=== PATIENT | female | born 1955 | race Caucasian/White ===

== ENCOUNTER → 2022-03-21 | Outpatient (CLI) | payer MEDICARE, OTHER | LOC: CARD 08:25 | PROVIDERS: ATTEND Physician Assistant | DX: I10 Essential (primary) hypertension (principal) | CPT/HCPCS: 93306 ==

== ENCOUNTER → 2022-03-28 | Outpatient (CLI) | payer MEDICARE, OTHER ==
[~2022-03-28] MED LIST: CATHETER FLUSH 10 ML SYR IVP PRN
[2022-03-28 13:08] VITALS: BP 171/80
--- NOTE | 2022-03-28 14:48 | Cardiology Stress Test Report ---
Stress Test Report Date of Procedure/Referring: Date of Procedure: Mar 28, 2022 PCP Karolyn Hughes Admitting Physician Admitting Physician: Attending Physician: Sondra Alonso Baseline Heart Rate: 63 Baseline Blood Pressure: Blood Pressure Systolic: 171 Blood Pressure Diastolic: 80 Vital Signs Date Time Temp Pulse Resp B/P (MAP) Pulse Ox O2 Delivery O2 Flow Rate FiO2 03/28/22 13:08 69 171/80 (110) 99 Room Air Baseline Vital Signs Vital Signs Date Time Temp Pulse Resp B/P (MAP) Pulse Ox O2 Delivery O2 Flow Rate FiO2 03/28/22 13:08 69 171/80 (110) 99 Room Air Baseline EKG: Baseline EKG: NSR Summary: After explaining the procedure and details to the patient, she signed the conse nt and was brought to the stress nuclear laboratory. Patient exercised on standard [place] protocol, EKG, heart rate and blood pressure were monitored continuously, resting and stress doses of radio tracer were injected, imaging was acquired and reviewed in the short axis, horizontal long axis and vertical long axis views Patient was able to exercise for a total of 7.30 minutes on [place] protocol, METs 9.1 Maximum heart rate 144 Maximum blood pressure 200/66 Stress EKG, Minimal nondiagnostic changes Recovery EKG, Return to baseline TID: 1.17 SSS: 3 SDS: 3 EF: 70 Conclusion: 1. Good exercise tolerance for a total of 7 minutes and 30 seconds on standard [place] protocol, 9.1 METS achieving 94% of maximal expected heart rate 2. Appropriate heart rate rate response to exercise with hypertensive response to exercise with peak blood pressure 200/66 return to baseline during recovery 3. Nondiagnostic EKG changes with exercise return to baseline during recovery 4. Breast attenuation with typical female pattern, no significant ischemia or infarction on SPECT images 5. Normal left ventricular size, ejection fraction 70% WILLIAM TERRELL MD Mar 28, 2022 14:48
== END ==
LOC: CARD 11:21
PROVIDERS: ATTEND Physician Assistant
DX: I10 Essential (primary) hypertension (principal)
CPT/HCPCS: 78452; 93017; A9502